=== PATIENT | female | born 1940 | race Caucasian/White ===

== ENCOUNTER → 2017-01-16 | Outpatient (CLI) | payer OTHER ==
[~2017-01-16] MED LIST: ATENOLOL25 MG PO; B COMPLEX1 EACH PO; DARVOCET N 1001 TAB PO; DAYPRO600 M1 PO; FIBER GUMMIES1 EACH PO; KEFLEX500 MG PO; MASON NATURAL2000 IU; MULTI-VITAMIN1 EAC1 PO; PRILOSEC OTC20 MG; PRINIVIL20 MG; ZOCOR40 MG; ZOFRAN ODT4 MG SL
== END | disposition home or self-care (01) ==
LOC: MAMMO 12:44
DX: Z12.31 Encounter for screening mammogram for malignant neoplasm of breast (principal)